=== PATIENT | male | born 1995 | race African-American/Black ===

== ENCOUNTER 2021-12-05 01:18 | Emergency (ER) | payer OTHER ==
[~2021-12-05] VITALS: Ht 188 cm; Wt 77.0 kg
[2021-12-05] MEDS ORDERED: KETOROLAC 60MG/2ML VIAL IM ONE (01:45)
[2021-12-05] MEDS: VISCOUS LIDOCAINE 2% 15 ML UDC MM PRN ×3 (01:58→02:26)
[2021-12-05] MEDS ORDERED: IBUP-2029 MT (03:21)
[2021-12-05] MEDS ORDERED: BENZ1LOZ73 MT (03:21)
[2021-12-05 03:28] VITALS: BP 123/89
== END 2021-12-05 03:28 | disposition home or self-care (01) ==
LOC: ER 01:18
DX: J02.9 Acute pharyngitis, unspecified (principal)
CPT/HCPCS: 87070; 87430; 96372; 99283; J1885